=== PATIENT | male | born 1985 | race Caucasian/White ===

== ENCOUNTER 2020-07-12 12:46 | Emergency (ER) | payer OTHER, SELFPAY ==
--- NOTE | 2020-07-12 12:51 | ED.OVERDOSE ---
HPI - Overdose General Stated Complaint: drug use Time Seen by Provider: 07/12/20 12:51 Source: patient and EMS Mode of arrival: EMS Limitations: no limitations History of Present Illness MD complaint: other (found sleeping in their car easily woken, no narcan) Onset (ago): minute(s) (just MANAGER ACQUISITION) Timing confirmed by: other (police) Context: Accidental Overdose: wanted to get high Treatments Prior to Arrival: none Related Data Allergies Allergy/AdvReac Type Severity Reaction Status Date / Time No Known Allergies Allergy Verified 07/12/20 12:51 Review of Systems Review of Systems: Constitutional : No Fever, No Chills ENT/Mouth : No Ear Pain, No Nasal Congestion Eyes: No Eye Pain, No Swelling, No Redness Cardiovascular : No Chest Pain, No SOB Respiratory : No Cough, No Sputum, No Dyspnea Gastrointestinal : No Nausea, No Vomiting Skin : No Skin Lesions, No rash Neuro : No Weakness, No Numbness, No Paresthesias, No Dizziness, No Headache Psych : positive Anxiety, positive Depression, no SI/HI PMFSH Past Medical History Attestation statement: The following information was validated with the patient. Medical History Opiate use Social History Social History (Updated 07/12/20 @ 12:53 by Magui Gonzalez DO) Substance Use Type: Heroin Physical Exam Vital Signs: Appearance: Alert. Oriented X3. No acute distress. Eyes: Pupils equal, round and reactive to light. ENT: Pharynx normal. Neck: Normal inspection. Neck supple. CVS: Normal heart rate and rhythm. Pulses normal. Respiratory: No respiratory distress. Breath sounds normal. Abdomen: Soft and non-tender. Skin: Skin warm and dry. Normal skin color. Normal skin turgor. Extremities: No lower extremity edema. No calf ttp Neuro: Oriented X 3. No motor deficit. No sensory deficit. MDM - Overdose MDM Narrative Medical decision making narrative: 35 yo male with no SI, no need for narcan - calm and cooperative, awake and alert, declines detox and is already on methadone Discharge Plan Discharge Clinical Impression: Opiate abuse, episodic Patient Disposition: Home, Self-Care Instructions: Opioid Use Disorder (ED) Additional Instructions: return to ED for any worsening symptoms or concerns
[2020-07-12 13:04] VITALS: BP 172/100; PULSE 110; RESP 16; TEMP 37; O2SAT 99; BMI 26.9
--- NOTE | 2020-07-12 13:49 | MHC.RECOVSUP ---
Recovery Support note: Patient is a 35 year old Albanian speaking male who presented to [facility] via EMS after using heroin and being found sleeping in a car. Patient reports he is on Methadone and that has been helpful. Patient reports relapsing today after a month of sobriety. Patient states he was told to quarantine and not go to work and he ended up relapsing. Patient reports he attends early recovery groups through [facility] and this tech writer encouraged patient to consider joining their IOP program. Patient reports he already has a therapist and has friends and family who he can reach out to for support. Discussed HFH with patient and offered patient opportunity to meet with a Lock Tender Chief Operator and patient declined. Encouraged patient to focus on the future and to move forward with his recovery, utilizing the supports he has in place.
== END 2020-07-12 14:13 | disposition home or self-care (01) ==
PROVIDERS: Emergency Provider Emergency Medicine; PCP Physician Assistant Medical
DX: T40.1X1A Poisoning by heroin, accidental (unintentional), initial encounter (principal); F11.10 Opioid abuse, uncomplicated; Y92.9 Unspecified place or not applicable; Z71.51 Drug abuse counseling and surveillance of drug abuser
CPT/HCPCS: 99283